=== PATIENT | male | born 1985 | race Hispanic/Latino ===

== ENCOUNTER 2017-11-11 02:46 | Emergency (ER) | payer MEDICAID ==
[2017-11-11 03:43] LABS: Basophils % (Auto) 0.4 % (0.0-1.8); Eosinophils # (Auto) 0.2 K/mm3 (0.0-0.4); Hematocrit 43.6 % (35.5-45.6); Lymphocytes # (Auto) 1.7 K/mm3 (1.2-5.4); Lymphocytes % (Auto) 20.7 % (13.4-35.0); Mean Corpuscular HGB Conc 34 % (32-34); Mean Corpuscular Hemoglobin 31 pg (28-32); Mean Corpuscular Volume 91 fl (84-94); Monocytes # (Auto) 0.7 K/mm3 (0.0-0.8); Monocytes % (Auto) 8.8 % (0.0-7.3); Platelet Count 211 K/mm3 (140-440); Red Blood Count 4.78 M/mm3 (3.65-5.03); Red Cell Distribution Width 13.5 % (13.2-15.2)
[2017-11-11 03:43] LABS: Bilirubin,Urine NEG (Negative); Blood,Urine NEG (Negative); Color,Urine Yellow (Yellow); Mucus,Urine 2+ /HPF; Protein,Urine <15 mg/dL mg/dL (Negative); Urobilinogen,Urine < 2.0 mg/dL (<2.0)
[2017-11-11 03:50] LABS: Benzodiazepines Screen,Urine PRESUMPTIVE NEGATIVE; Cocaine Screen,Urine PRESUMPTIVE NEGATIVE; Methadone Screen,Urine PRESUMPTIVE NEGATIVE; Opiate Screen,Urine PRESUMPTIVE NEGATIVE
[2017-11-11 03:56] LABS: BUN/Creatinine Ratio 17; Blood Urea Nitrogen 15 mg/dL (9-20); Calcium 9.3 mg/dL (8.4-10.2); Hemolysis Index 12
[2017-11-11 04:03] LABS: Amphetamine Screen,Urine PRESUMPTIVE POSITIVE; Cannabinoid Screen,Urine PRESUMPTIVE POSITIVE
[2017-11-11] MEDS ORDERED: GEODON IM ONE ×2 (06:37→06:47)
--- NOTE | 2017-11-11 06:47 | Emergency Department Report ---
ED Psych HPI - General Chief Complaint: Psych Stated Complaint: MH EVAL Time Seen by Provider: 11/11/17 06:42 Source: patient, police Mode of arrival: Ambulatory - History of Present Illness Initial Comments: Patient is 32 years old male with history of bipolar and schizophrenia. Patient brought here for evaluation of suicidal and homicidal evaluation. The patient refused to take his meds. He has history of drug abuse also. Patient made threats to kill his mother sister and pylorus and burned them in the backyard. Patient is also suicidal. In the ER patient was aggressive and tried to run from the ER almost naked annulus caught while he's leaving the ambulance door of the emergency room. Patient immediately about 1013 and worked in isolation room and receive Geodon 20 mg IM. MD Complaint: suicidal ideation -: Gradual Associated Psychiatric Symptoms: suicidal ideation, homicidal ideation, racing thoughts, delusions History of same: Yes Quality: constant If Self Harm: has plan - Related Data Home Medications Medication Instructions Recorded Confirmed Last Taken No Known Home Medications [No 11/11/17 11/11/17 Unknown Reported Home Medications] Allergies Allergy/AdvReac Type Severity Reaction Status Date / Time No Known Allergies Allergy Verified 08/02/14 20:53 ED Review of Systems ROS: Stated complaint: MH EVAL Other details as noted in HPI Constitutional: denies: chills, fever Respiratory: denies: cough, orthopnea, shortness of breath, SOB with exertion, SOB at rest, wheezing Cardiovascular: denies: chest pain, palpitations, dyspnea on exertion Gastrointestinal: denies: abdominal pain, nausea, vomiting, diarrhea, constipation Genitourinary: denies: urgency, dysuria, frequency Neurological: denies: headache, weakness, numbness, paresthesias, confusion Psychiatric: homicidal thoughts, suicidal thoughts ED Past Medical Hx - Past Medical History Hx Psychiatric Treatment: Yes (bipolar, adhd) Additional medical history: Degenerative Disc. - Surgical History Additional Surgical History: L Femoral artery bypass - Social History Smoking Status: Current Every Day Smoker Substance Use Type: Alcohol, Marijuana - Medications Home Medications: Home Medications Medication Instructions Recorded Confirmed Last Taken Type No Known Home Medications [No 11/11/17 11/11/17 Unknown History Reported Home Medications] ED Physical Exam - General Limitations: No Limitations General appearance: anxious, other (agitated) - Head Head exam: Present: atraumatic, normocephalic, normal inspection - Eye Eye exam: Present: normal appearance, PERRL - ENT ENT exam: Present: normal exam, normal orophraynx, mucous membranes moist - Neck Neck exam: Present: normal inspection, full ROM. Absent: tenderness, meningismus - Respiratory Respiratory exam: Present: normal lung sounds bilaterally. Absent: respiratory distress, wheezes, rales, rhonchi, stridor, accessory muscle use, decreased breath sounds, prolonged expiratory - Cardiovascular Cardiovascular Exam: Present: regular rate, normal rhythm, normal heart sounds - GI/Abdominal GI/Abdominal exam: Present: soft, normal bowel sounds. Absent: distended, tenderness, guarding, rebound, rigid, organomegaly, mass, bruit, pulsatile mass , hernia - Extremities Exam Extremities exam: Present: normal inspection, full ROM, normal capillary refill. Absent: tenderness, pedal edema, joint swelling, calf tenderness - Back Exam Back exam: Present: normal inspection, full ROM. Absent: tenderness, CVA tenderness (R), CVA tenderness (L), muscle spasm, paraspinal tenderness, vertebral tenderness - Neurological Exam Neurological exam: Present: alert, oriented X3, CN II-XII intact, normal gait - Psychiatric Psychiatric exam: Present: agitated, manic, homicidal ideation, suicidal ideation - Skin Skin exam: Present: warm, intact, normal color ED Course Vital Signs 11/11/17 03:04 Temperature 98.7 F Pulse Rate 86 Respiratory 18 Rate Blood Pressure 133/72 O2 Sat by Pulse 99 Oximetry ED Medical Decision Making - Lab Data Result diagrams: 11/11/17 03:29 11/11/17 03:29 Critical care attestation.: If time is entered above; I have spent that time in minutes in the direct care of this critically ill patient, excluding procedure time. ED Disposition Clinical Impression: Acute psychosis, Homicidal ideation, Suicidal ideation Disposition: DC/TX-65 PSY HOSP/PSY UNIT Is pt being admited?: No Condition: Stable Referrals: CHRIS WILKINS MD [Primary Care Provider] - 3-5 Days
[2017-11-12 11:56] VITALS: BP 108/71
--- NOTE | 2017-11-12 13:14 | Consultation ---
History of Present Illness - Reason for Consult Consult date: 11/12/17 Reason for consult: Initial Psychiatric Evaluation Medications and Allergies Allergies Allergy/AdvReac Type Severity Reaction Status Date / Time No Known Allergies Allergy Verified 08/02/14 20:53 Home Medications Medication Instructions Recorded Confirmed Last Taken Type No Known Home Medications [No 11/11/17 11/11/17 Unknown History Reported Home Medications] Mental Status Exam - Vital signs Last Vital Signs Temp 98.6 F 11/12/17 10:05 Pulse 82 11/12/17 10:05 Resp 20 11/12/17 10:05 BP 108/71 11/12/17 10:05 Pulse Ox 100 11/12/17 10:05 Results Result Diagrams: 11/11/17 03:29 11/11/17 03:29 All other labs normal.
== END 2017-11-12 11:58 ==
LOC: ED 02:46 → EEVIPCON 02:46 → ED 11-12 11:58
DX: F23 Brief psychotic disorder (principal); F17.200 Nicotine dependence, unspecified, uncomplicated; F31.9 Bipolar disorder, unspecified
CPT/HCPCS: 36415; 80048; 80307; 81001; 85025; 96372; 99283; G0480; J3486; 80320

== ENCOUNTER 2019-07-07 21:42 | Emergency (ER) | payer MEDICAID ==
[2019-07-07 22:47] LABS: Basophils # (Auto) 0.1 K/mm3 (0.0-0.1); Basophils % (Auto) 0.8 % (0.0-1.8); Eosinophils # (Auto) 0.3 K/mm3 (0.0-0.4); Eosinophils % (Auto) 2.9 % (0.0-4.3); Hemoglobin 13.3 gm/dl (11.8-15.2); Lymphocytes # (Auto) 1.6 K/mm3 (1.2-5.4); Lymphocytes % (Auto) 17.3 % (13.4-35.0); Mean Corpuscular HGB Conc 34 % (32-34); Mean Corpuscular Volume 92 fl (84-94); Monocytes % (Auto) 11.5 % (0.0-7.3); Platelet Count 283 K/mm3 (140-440); Red Blood Count 4.26 M/mm3 (3.65-5.03)
[2019-07-07] MEDS ORDERED: LORazepam 2 MG/ML VIAL IM ONE (23:05)
[2019-07-07] MEDS ORDERED: HALOPERIDOL LACTATE 5 MG/1 ML INJ IM ONE (23:05)
[2019-07-07] MEDS ORDERED: LORazepam 2 MG/ML VIAL ONE (23:07)
[2019-07-07 23:10] LABS: Alanine Aminotransferase 22 units/L (7-56); Albumin 4.2 g/dL (3.9-5); BUN/Creatinine Ratio 21; Blood Urea Nitrogen 19 mg/dL (9-20); Calcium 9.3 mg/dL (8.4-10.2); Hemolysis Index 3
--- NOTE | 2019-07-07 23:22 | Emergency Department Report ---
HPI - General Chief Complaint: Psych Time Seen by Provider: 07/07/19 21:48 - HPI HPI: 33-year-old male presents to the emergency department for what appears to be a mental health evaluation. He was seen here in October 2017 and has a history of bipolar disorder and schizophrenia. The patient denies any medical or psychiatric history. He says that he is here because "I have worms and bird flu." All the patient is in the emergency department he has become agitated and belligerent. He is making claims of people messing with his mind from "50 yards away" and "they are using their mind tricks on me." Patient denies being on any medication. He is not cooperative. ED Past Medical Hx - Past Medical History Previous Medical History?: No Hx Hypertension: No Hx CVA: No Hx Heart Attack/AMI: No Hx Congestive Heart Failure: No Hx Diabetes: No Hx Deep Vein Thrombosis: No Hx Pulmonary Embolism: No Hx GERD: No Hx Liver Disease: No Hx Renal Disease: No Hx of Cancer: No Hx Sickle Cell Disease: No Hx Arthritis: No Hx Headaches / Migraines: No Hx Seizures: No Hx Kidney Stones: No Hx Psychiatric Treatment: Yes (bipolar, adhd) Hx Asthma: No Hx COPD: No Hx Tuberculosis: No Hx Dementia: No Hx HIV: No Additional medical history: Degenerative Disc. - Surgical History Past Surgical History?: Yes Hx Coronary Stent: No Hx Open Heart Surgery: No Hx Pacemaker: No Hx Internal Defibrillator: No Hx Cholecystectomy: No Hx Appendectomy: No Hx Breast Surgery: No Additional Surgical History: L Femoral artery bypass - Social History Smoking Status: Current Some Day Smoker Substance Use Type: None - Medications Home Medications: Home Medications Medication Instructions Recorded Confirmed Last Taken Type No Known Home Medications [No 11/11/17 11/11/17 Unknown History Reported Home Medications] ED Review of Systems ROS: Stated complaint: MH EVAL Other details as noted in HPI Constitutional: denies: chills, fever Respiratory: denies: shortness of breath Cardiovascular: denies: chest pain Gastrointestinal: denies: abdominal pain Skin: pruritus Psychiatric: other (delusions, hallucinations) Physical Exam - Physical Exam Vital Signs: Vital Signs 07/07/19 22:34 Temperature 98.6 F Pulse Rate 61 Respiratory 18 Rate Blood Pressure 130/73 Blood Pressure 130/73 [Right] O2 Sat by Pulse 100 Oximetry Physical Exam: GENERAL: The patient is well-developed well-nourished. HENT: Normocephalic. Atraumatic. Patient has moist mucous membranes. EYES: Extraocular motions are intact. NECK: Supple. Trachea is midline. CHEST/LUNGS: Clear to auscultation. There is no respiratory distress noted. HEART/CARDIOVASCULAR: Regular. There is no tachycardia. There is no murmur. ABDOMEN: Abdomen is soft, nontender. Patient has normal bowel sounds. There is no abdominal distention. SKIN: Skin is warm and dry. NEURO: The patient is awake but confused. No facial asymmetry. No slurred speech. MUSCULOSKELETAL: There is no tenderness or deformity. There is no limitation range of motion. There is no evidence of acute injury. ED Course Vital Signs 07/07/19 22:34 Temperature 98.6 F Pulse Rate 61 Respiratory 18 Rate Blood Pressure 130/73 Blood Pressure 130/73 [Right] O2 Sat by Pulse 100 Oximetry ED Medical Decision Making - Lab Data Result diagrams: 07/07/19 22:16 07/07/19 22:16 - Medical Decision Making This patient initially came in saying that he was having worms crawling underneath his skin and had the bird flu. Patient appeared to displace some psychosis from the very beginning. I did a physical examination and I did not see any significant rash or lesions. His vital signs are stable including being afebrile. However, during the patient's initial ED course, he began talking to himself, yelling out, became verbally abusive, agitated, belligerent and displayed some paranoia. The patient could not be redirected. He was given Ativan and moved to bed 15. This appears to have helped and the patient is now resting and is currently calm. His blood work thus far has been unremarkable including CBC, metabolic panel and blood alcohol level. We are awaiting a urinalysis and urine drug screen. While the UDS could potentially show that the patient has done drugs and/or is currently intoxicated, it does not change my plan for disposition. The patient is medically stable for any psychiatric placement. Critical Care Time: No Critical care attestation.: If time is entered above; I have spent that time in minutes in the direct care of this critically ill patient, excluding procedure time. ED Disposition Clinical Impression: Acute psychosis, Delusions, Paranoia Disposition: DC/TX-65 PSY HOSP/PSY UNIT Is pt being admited?: No Condition: Stable Referrals: PRIMARY CARE, [Primary Care Provider] - 3-5 Days Time of Disposition: 03:02
[2019-07-08 07:18] LABS: Benzodiazepines Screen,Urine PRESUMPTIVE NEGATIVE; Cocaine Screen,Urine PRESUMPTIVE NEGATIVE; Methadone Screen,Urine PRESUMPTIVE NEGATIVE; Opiate Screen,Urine PRESUMPTIVE NEGATIVE
[2019-07-08 07:20] LABS: Bilirubin,Urine NEG (Negative); Blood,Urine NEG (Negative); Color,Urine Yellow (Yellow); Mucus,Urine FEW /HPF; Protein,Urine <15 mg/dL mg/dL (Negative)
[2019-07-08 07:33] LABS: Amphetamine Screen,Urine PRESUMPTIVE POSITIVE; Cannabinoid Screen,Urine PRESUMPTIVE POSITIVE
[2019-07-08] MEDS ORDERED: HALOPERIDOL LACTATE 5 MG/1 ML INJ IM ONE (11:44)
[2019-07-08] MEDS ORDERED: diphenhydrAMINE 50 MG/ML VIAL IM ONE (11:45)
[2019-07-08 20:03] VITALS: BP 132/76
[2019-07-08] MEDS ORDERED: ZIPRASIDONE MESYLATE 20 MG VIAL IM ONE (22:26)
== END 2019-07-09 00:17 ==
LOC: ED 21:42
DX: F23 Brief psychotic disorder (principal); F22 Delusional disorders; F31.9 Bipolar disorder, unspecified; F90.9 Attention-deficit hyperactivity disorder, unspecified type; F17.200 Nicotine dependence, unspecified, uncomplicated
CPT/HCPCS: 36415; 80053; 80307; 81001; 82140; 84443; 85025; 96372; 99285; J1200; J1630; J2060; J3486; 80320; G0480

== ENCOUNTER 2019-09-10 05:40 | Emergency (ER) | payer MEDICAID ==
[2019-09-10 05:47] VITALS: BP 145/90
[2019-09-10] MEDS ORDERED: SODIUM CHLORIDE 0.9% 1000 ML 1,000 ML ONE (07:23)
== END 2019-09-10 07:45 | disposition left against medical advice (07) ==
LOC: ED 05:40
DX: M79.671 Pain in right foot (principal); Z53.21 Procedure and treatment not carried out due to patient leaving prior to being seen by health care provider
CPT/HCPCS: J7030

== ENCOUNTER 2019-09-24 00:43 | Emergency (ER) | payer MEDICAID | END 2019-09-24 02:09 | disposition left against medical advice (07) | LOC: ED 00:43 | DX: M79.645 Pain in left finger(s) (principal); Z53.21 Procedure and treatment not carried out due to patient leaving prior to being seen by health care provider ==

== ENCOUNTER 2022-01-28 11:10 | Emergency (ER) | payer MEDICAID ==
[2022-01-28 11:19] VITALS: BP 140/80
== END 2022-01-28 11:22 | disposition left against medical advice (07) ==
LOC: ED 11:10
DX: M79.89 Other specified soft tissue disorders (principal); Z53.21 Procedure and treatment not carried out due to patient leaving prior to being seen by health care provider

== ENCOUNTER 2022-01-28 11:55 | Emergency (ER) | payer MEDICAID ==
[2022-01-28 12:04] VITALS: BP 136/83
[2022-01-28 12:45] LABS: Hematocrit 36.9 % (35.5-45.6); Hemoglobin 12.9 gm/dl (11.8-15.2); Mean Corpuscular HGB Conc 35 % (32-34); Mean Corpuscular Volume 90 fl (84-94); Platelet Count 243 K/mm3 (140-440); Red Blood Count 4.11 M/mm3 (3.65-5.03); Red Cell Distribution Width 14.3 % (13.2-15.2)
[2022-01-28 12:56] LABS: BUN/Creatinine Ratio 8; Blood Urea Nitrogen 10 mg/dL (9-20); Calcium 9.5 mg/dL (8.4-10.2); Hemolysis Index 3
[2022-01-28 14:56] LABS: Benzodiazepines Screen,Urine Negative; Methadone Screen,Urine Negative; Opiate Screen,Urine Negative
[2022-01-28 15:16] LABS: Bilirubin,Urine Negative (Negative); Color,Urine Yellow (Yellow); Mucus,Urine FEW /HPF
[2022-01-28 15:17] LABS: Blood,Urine Negative (Negative); Urobilinogen,Urine < 2.0 mg/dL (<2.0)
[2022-01-28 15:18] LABS: Amphetamine Screen,Urine Positive; Cannabinoid Screen,Urine Positive; Cocaine Screen,Urine Positive
[2022-01-28 16:40] LABS: Band Neutrophils # (Manual) 0.6 K/mm3; Basophils % (Manual) 0 % (0.0-1.8); Eosinophils % (Manual) 0 % (0.0-4.3); Hypochromasia 1+; Platelet Estimate Consistent w Auto; Total Cells Counted 100
== END 2022-01-28 17:36 | disposition left against medical advice (07) ==
LOC: ED 11:55
DX: M79.89 Other specified soft tissue disorders (principal); Z53.21 Procedure and treatment not carried out due to patient leaving prior to being seen by health care provider
CPT/HCPCS: 36415; 80048; 80307; 80320; 81001; 85007; 85025; G0480

== ENCOUNTER 2022-01-29 01:39 | Emergency (ER) | payer MEDICAID ==
[2022-01-29 02:45] VITALS: BP 134/80
== END 2022-01-29 15:38 | disposition left against medical advice (07) ==
LOC: ED 01:39
DX: R21 Rash and other nonspecific skin eruption (principal); Z53.21 Procedure and treatment not carried out due to patient leaving prior to being seen by health care provider

== ENCOUNTER 2022-01-29 15:04 | Emergency (ER) | payer MEDICAID ==
[2022-01-29 15:13] VITALS: BP 130/90
[2022-01-29] MEDS ORDERED: HYDROcodone/ACETAMINOPHEN 5-325 MG TAB PO ONE (15:29)
--- NOTE | 2022-01-29 15:30 | Emergency Department Report ---
HPI - General Chief Complaint: Extremity Problem,Nontraumatic Time Seen by Provider: 01/29/22 15:23 - HPI HPI: Charge nurse triage Patient is a 36-year-old male present with chief complaint bilateral lower extremity pain and swelling. Patient states for the past week he has had pain and swelling in both lower extremities. Patient denies any preceding trauma. Patient complains of pain in both legs and gives his pain a score of 10/10. Patient is come to this emergency department reportedly 3 times earlier for the same but continues to elope. Patient left the emergency department then walked to the gas station and called 911 ED Past Medical Hx - Past Medical History Hx Psychiatric Treatment: Yes (adhd, PTSD, autism) Hx Asthma: Yes Additional medical history: Degenerative Disc. , Kory leg swelling and discoloration - Surgical History Additional Surgical History: L Femoral artery bypass - Family History Family history: no significant - Social History Smoking Status: Smoker, Current Status Unknown Substance Use Type: Cocaine, Methamphetamines - Medications Home Medications: Home Medications Medication Instructions Recorded Confirmed Last Taken Type Furosemide [Lasix] 20 mg PO QDAY #10 tablet 01/29/22 Unknown Rx HYDROcodone/APAP 5-325 [[place] 1 each PO Q6HR PRN #10 tablet 01/29/22 Unknown Rx 5/325] Potassium Chloride [Klor-Con 8] 8 meq PO QDAY #5 tablet 01/29/22 Unknown Rx ED Review of Systems ROS: Stated complaint: LEG PAIN Other details as noted in HPI Constitutional: no symptoms reported. denies: fever Eyes: denies: eye pain ENT: denies: throat pain Respiratory: no symptoms reported Cardiovascular: denies: chest pain Endocrine: no symptoms reported Gastrointestinal: denies: abdominal pain Genitourinary: denies: dysuria Musculoskeletal: myalgia Skin: lesions, change in color Neurological: denies: headache Physical Exam - Physical Exam Vital Signs: Vital Signs 01/29/22 15:10 Temperature 98.9 F Pulse Rate 115 H Respiratory 18 Rate Blood Pressure 130/90 [Left] O2 Sat by Pulse 98 Oximetry Physical Exam: GENERAL: The patient is well-developed well-nourished male lying on stretcher appearing to be in moderate discomfort. [] HEENT: Normocephalic. Atraumatic. Extraocular motions are intact. Patient has moist mucous membranes. NECK: Supple. Trachea midline CHEST/LUNGS: Clear to auscultation. There is no respiratory distress noted. HEART/CARDIOVASCULAR: Regular. There is no tachycardia. There is no gallop rub or murmur. ABDOMEN: Abdomen is soft, nontender. Patient has normal bowel sounds. There is no abdominal distention. SKIN: There are chronic appearing erythematous skin changes of bilateral lower extremities with pitting edema. NEURO: The patient is awake, alert, and oriented. The patient is cooperative. The patient has no focal neurologic deficits. The patient has normal speech. GCS 15 MUSCULOSKELETAL: There is no evidence of acute injury. ED Course Vital Signs 01/29/22 15:10 Temperature 98.9 F Pulse Rate 115 H Respiratory 18 Rate Blood Pressure 130/90 [Left] O2 Sat by Pulse 98 Oximetry - Reevaluation(s) Reevaluation #1: 01/29/22 17:57 Patient calm and in no acute distress. Updated on ultrasound findings and current plan. ED Medical Decision Making - Lab Data Result diagrams: 01/29/22 16:14 01/29/22 16:14 Laboratory Tests 01/29/22 01/29/22 01/29/22 16:14 16:14 16:14 WBC 9.7 RBC 4.24 Hgb 13.0 Hct 38.7 MCV 91 MCH 31 MCHC 34 RDW 14.5 Plt Count 220 Lymph % (Auto) 6.2 L [place] % (Auto) 10.5 H Eos % (Auto) 0.4 Baso % (Auto) 0.5 Lymph # (Auto) 0.6 L [place] # (Auto) 1.0 H Eos # (Auto) 0.0 Baso # (Auto) 0.0 Seg Neutrophils % 82.4 H Seg Neutrophils # 8.0 H Sodium 139 Potassium 3.4 L Chloride 97.7 L Carbon Dioxide 25 Anion Gap 20 BUN 14 Creatinine 1.3 Estimated GFR > 60 BUN/Creatinine Ratio 11 Glucose 102 H Lactic Acid 1.20 Calcium 9.4 NT-Pro-B Natriuret Pep 122.2 - Radiology Data Radiology results: report reviewed (Bilateral lower extremity arterial duplex, bilateral lower extremity Dopplers), image reviewed (Bilateral lower extremity arterial duplex, bilateral lower extremity Dopplers) [facility] [address] [place] [address] Vascular Lab Report Signed Patient: KIERRA MACK IV MR#: [id number] : 1985 Acct:[id number] Age/Sex: 36 / M ADM Date: 01/29/22 Loc: ED Attending Dr: Ordering Physician: DARSHANA GARRETT MD Date of Service: 01/29/22 Procedure(s): VL arterial duplex LE PRESTON Accession Number(s): [id number] cc: DARSHANA GARRETT MD DUPLEX DOPPLER LOWER EXTREMITY ARTERIAL, BILATERAL INDICATION / CLINICAL INFORMATION: Pain and swelling. TECHNIQUE: Arterial duplex examination of both lower extremities performed using B-mode, color flow and spectral Doppler assessment. FINDINGS: RIGHT: Common Femoral Artery: PSV 179 cm/sec. Biphasic waveform. Proximal SFA: PSV 211 cm/sec. Biphasic waveform. Mid SFA: PSV 172 cm/sec. Biphasic waveform. Distal SFA: PSV 139 cm/sec. Biphasic waveform. Popliteal artery: PSV 57 cm/sec. Biphasic waveform. Posterior tibial artery: PSV 176 cm/sec. Biphasic waveform. Dorsalis Pedis Artery: PSV 118 cm/sec. Monophasic waveform. LEFT: Common femoral artery to mid femoral artery bypass graft is patent. Common Femoral Artery: PSV 143 cm/sec. Triphasic waveform. Proximal SFA: PSV 105 cm/sec. Triphasic waveform. Mid SFA: PSV 156 cm/sec. Biphasic waveform. Distal SFA: PSV 139 cm/sec. Monophasic waveform. Popliteal artery: PSV 112 cm/sec. Monophasic waveform. Posterior tibial artery: PSV 120 cm/sec. Monophasic waveform. Dorsalis Pedis Artery: PSV 71 cm/sec. Monophasic waveform. IMPRESSION: 1. Hemodynamically significant peripheral arterial disease in both calves. 2. Left femoral artery bypass graft appears patent. Doppler Waveform: - Triphasic is normal. - Biphasic is abnormal if clear transition from triphasic signal along vascular tree. - Monophasic is abnormal. Signer Name: Gil Gomez MD Signed: 01/29/2022 6:18 PM Workstation Name: [id number] Transcribed By: ERROL Dictated By: Gil Gomez MD Electronically Authenticated By: Gil Gomez MD Signed Date/Time: 01/29/221817 DD/ 14 TD/TT: [facility] [address] [place] [address] Vascular Lab Report Signed Patient: KIERRA MACK IV MR#: [id number] : 1985 Acct:[id number] Age/Sex: 36 / M ADM Date: 01/29/22 Loc: ED Attending Dr: Ordering Physician: DARSHANA GARRETT MD Date of Service: 01/29/22 Procedure(s): VL venous duplex LE BILAT Accession Number(s): [id number] cc: DARSHANA GARRETT MD DUPLEX DOPPLER LOWER EXTREMITY VEINS, BILATERAL INDICATION / CLINICAL INFORMATION: pain, swelling. TECHNIQUE: Duplex doppler imaging was performed through the veins of both lower extremities using venous compression and other maneuvers. COMPARISON: None available. FINDINGS: RIGHT COMMON FEMORAL VEIN: Negative. RIGHT FEMORAL VEIN: Negative. RIGHT POPLITEAL VEIN: Negative. RIGHT CALF VEINS: Negative. LEFT COMMON FEMORAL VEIN: Negative. LEFT FEMORAL VEIN: Negative. LEFT POPLITEAL VEIN: Negative. LEFT CALF VEINS: Negative. ADDITIONAL FINDINGS: None. IMPRESSION: 1. No sonographic evidence for DVT in either lower extremity. Signer Name: Gil Gomez MD Signed: 01/29/2022 6:13 PM Workstation Name: [id number] Transcribed By: ERROL Dictated By: Gil Gomez MD Electronically Authenticated By: Gil Gomez MD Signed Date/Time: 01/29/221812 DD/ 11 TD/TT: Critical care attestation.: If time is entered above; I have spent that time in minutes in the direct care of this critically ill patient, excluding procedure time. ED Disposition Clinical Impression: Peripheral edema, Bilateral leg pain, Peripheral vascular disease Disposition: 01 HOME / SELF CARE / HOMELESS Is pt being admited?: No Does the pt Need Aspirin: No Condition: Stable Instructions: Edema Additional Instructions: Return to the emergency department should you develop worsening symptoms, inability to tolerate food or liquids, high fever or any other concerns Prescriptions: Potassium Chloride [Klor-Con 8] 8 meq PO QDAY #5 tablet Furosemide [Lasix] 20 mg PO QDAY #10 tablet HYDROcodone/APAP 5-325 [[place] 5/325] 1 each PO Q6HR PRN #10 tablet PRN Reason: Pain Referrals: PRIMARY CARE, [Primary Care Provider] - 3-5 Days CRYSTAL ZAPATA MD [Staff Physician] - 3-5 Days Time of Disposition: 18:40
[2022-01-29 16:32] LABS: Basophils % (Auto) 0.5 % (0.0-1.8); Eosinophils % (Auto) 0.4 % (0.0-4.3); Hematocrit 38.7 % (35.5-45.6); Lymphocytes # (Auto) 0.6 K/mm3 (1.2-5.4); Lymphocytes % (Auto) 6.2 % (13.4-35.0); Mean Corpuscular HGB Conc 34 % (32-34); Mean Corpuscular Volume 91 fl (84-94); Monocytes % (Auto) 10.5 % (0.0-7.3); Platelet Count 220 K/mm3 (140-440); Red Blood Count 4.24 M/mm3 (3.65-5.03); Red Cell Distribution Width 14.5 % (13.2-15.2)
[2022-01-29 16:53] LABS: BUN/Creatinine Ratio 11; Blood Urea Nitrogen 14 mg/dL (9-20); Calcium 9.4 mg/dL (8.4-10.2); Hemolysis Index 1
[2022-01-29] MEDS ORDERED: ONDANSETRON 4 MG/2 ML INJ IM ONE (17:55)
[2022-01-29] MEDS ORDERED: fentaNYL 100 MCG/2 ML INJ IM ONE (17:55)
[2022-01-29] MEDS ORDERED: POTASSIUM CHLORIDE ER 20 MEQ TAB PO ONE (18:08)
--- NOTE | 2022-01-29 18:17 | Vascular Lab Report ---
DUPLEX DOPPLER LOWER EXTREMITY VEINS, BILATERAL INDICATION / CLINICAL INFORMATION: pain, swelling. TECHNIQUE: Duplex doppler imaging was performed through the veins of both lower extremities using venous carter giuseppe and other maneuvers. COMPARISON: None available. FINDINGS: RIGHT COMMON FEMORAL VEIN: Negative. RIGHT FEMORAL VEIN: Negative. RIGHT POPLITEAL VEIN: Negative. RIGHT CALF VEINS: Negative. LEFT COMMON FEMORAL VEIN: Negative. LEFT FEMORAL VEIN: Negative. LEFT POPLITEAL VEIN: Negative. LEFT CALF VEINS: Negative. ADDITIONAL FINDINGS: None. IMPRESSION: 1. No sonographic evidence for DVT in either lower extremity. Signer Name: Gil Gomez MD Signed: 01/29/2022 6:13 PM Workstation Name: [id number]
--- NOTE | 2022-01-29 18:22 | Vascular Lab Report ---
DUPLEX DOPPLER LOWER EXTREMITY ARTERIAL, BILATERAL INDICATION / CLINICAL INFORMATION: Pain and swelling. TECHNIQUE: Arterial duplex examination of both lower extremities performed using B-mode, color flow and spectral Doppler assessment. FINDINGS: RIGHT: Common Femoral Artery: PSV 179 cm/sec. Biphasic waveform. Proximal SFA: PSV 211 cm/sec. Biphasic waveform. Mid SFA: PSV 172 cm/sec. Biphasic waveform. Distal SFA: PSV 139 cm/sec. Biphasic waveform. Popliteal artery: PSV 57 cm/sec. Biphasic waveform. Posterior tibial artery: PSV 176 cm/sec. Biphasic waveform. Dorsalis Pedis Artery: PSV 118 cm/sec. Monophasic waveform. LEFT: Common femoral artery to mid femoral artery bypass graft is patent. Common Femoral Artery: PSV 143 cm/sec. Triphasic waveform. Proximal SFA: PSV 105 cm/sec. Triphasic waveform. Mid SFA: PSV 156 cm/sec. Biphasic waveform. Distal SFA: PSV 139 cm/sec. Monophasic waveform. Popliteal artery: PSV 112 cm/sec. Monophasic waveform. Posterior tibial artery: PSV 120 cm/sec. Monophasic waveform. Dorsalis Pedis Artery: PSV 71 cm/sec. Monophasic waveform. IMPRESSION: 1. Hemodynamically significant peripheral arterial disease in both calves. 2. Left femoral artery bypass graft appears patent. Doppler Waveform: - Triphasic is normal. - Biphasic is abnormal if clear transition from triphasic signal along vascular tree. - Monophasic is abnormal. Signer Name: Gil Gomez MD Signed: 01/29/2022 6:18 PM Workstation Name: [id number]
== END 2022-01-29 19:17 | disposition home or self-care (01) ==
LOC: ED 15:04
DX: I73.9 Peripheral vascular disease, unspecified (principal); M79.661 Pain in right lower leg; M79.662 Pain in left lower leg; R60.0 Localized edema; J45.909 Unspecified asthma, uncomplicated; F17.200 Nicotine dependence, unspecified, uncomplicated; F15.90 Other stimulant use, unspecified, uncomplicated; F14.90 Cocaine use, unspecified, uncomplicated; Z79.899 Other long term (current) drug therapy
CPT/HCPCS: 36415; 80048; 82140; 83880; 85025; 87040; 93925; 93970; 96372; 99284; J2405; J3010